=== PATIENT | female | born 1955 | race African-American/Black ===

== ENCOUNTER 2019-09-03 07:50 | Inpatient (IN) | payer BC, MEDICARE ==
[~2019-09-03] VITALS: Ht 165.1 cm; Wt 101.2 kg
--- NOTE | 2019-09-03 07:50 | NUR ---
ED Nurse Note: Patient came into the ER from home with RA 34 with a c/o chest pain on the left side since this morning. Patient states she is no longer having chest pain but shortness of breath. patient is aaox4, on room air and vital signs are stable. Patient placed in gown and on waste/materials exchange specialist. EKG done bedside and blood lab specimens sent to the lab.
--- NOTE | 2019-09-03 08:08 | Emergency Room Report ---
History of Present Illness General Chief Complaint: Chest Pain Source: Patient, EMS Present Illness HPI Patient presents to the emergency department today complaining of cute onset of left-sided chest pain and shortness of breath associated dizziness. She states that she began to feel dizzy earlier this morning felt like she was going to faint. She did not actually have a syncopal event. Subsequently developed an onset of chest discomfort associate shortness of breath. Because of severity of symptoms she called EMS. EMS gave her nitro and aspirin and symptoms did improve. She still slightly short of breath and complaining of mild lightheadedness. She denies any weakness in any part of body. Denies any leg pain or leg swelling. Denies any nausea vomiting diarrhea chills. Symptoms noted to be highly severe. No other modifying factors. No other associated signs and symptoms. No other complaints were noted. Allergies: Coded Allergies: No Known Allergies (Unverified , 09/03/19) Patient History Past Medical History: DM, HTN Past Surgical History: none Pertinent Family History: none Social History: Denies: smoking, alcohol use, drug use Reviewed Nursing Documentation: PMH: Agreed; PSxH: Agreed Nursing Documentation-PMH Past Medical History: No History, Except For Hx Hypertension: Yes Review of Systems All Other Systems: negative except mentioned in HPI Physical Exam Vital Signs Date Time Temp Pulse Resp B/P (MAP) Pulse Ox O2 Delivery O2 Flow Rate FiO2 09/03/19 07:45 98.4 80 20 134/74 (94) 98 Room Air Sp02 EP Interpretation: reviewed, normal General Appearance: normal inspection, well appearing, no apparent distress, alert Head: atraumatic Eyes: bilateral eye normal inspection ENT: normal ENT inspection, hearing grossly normal, normal voice Neck: normal inspection, full range of motion, supple, no bony tend Respiratory: normal inspection, lungs clear, normal breath sounds, no respiratory distress, no retraction, no wheezing Cardiovascular #1: regular rate, rhythm, no edema Gastrointestinal: normal inspection, normal bowel sounds, non tender, soft, no guarding, no hernia Genitourinary: no CVA tenderness Musculoskeletal: normal inspection, back normal, normal range of motion Neurologic: alert, responsive, speech normal, normal inspection Psychiatric: normal inspection, judgement/insight normal, mood/affect normal Skin: no rash Medical Decision Making Diagnostic Impression: Primary Impression: ACS (acute coronary syndrome) ER Course Patient presented to the emergency department today complaining of chest pain. Differential diagnoses include acute coronary syndrome, pulmonary embolism, pneumothorax, chest wall pain, pleurisy, pericarditis, acute anxiety reaction just to name a few. Given the severity of the patient's presentation I felt this is a highly complex patient. This patient required extensive workup. CBC , chemistry, EKG, chest x-ray, cardiac enzymes, liver profile were all obtained. 12-lead EKG performed for nontraumatic chest pain. RS documentation: EKG was performed. Please refer to below for interpretation. Laboratory work-up shows elevated troponin. Patient's BUN and creatinine were also elevated. Given patient's risk factors felt the patient required admission. Case was discussed with admitting physician Dr. Froilan Christine. Labs Test 09/03/19 08:00 White Blood Count 4.4 K/UL (4.8-10.8) Red Blood Count 4.94 M/UL (4.20-5.40) Hemoglobin 13.7 G/DL (12.0-16.0) Hematocrit 43.0 % (37.0-47.0) Mean Corpuscular Volume 87 FL (80-99) Mean Corpuscular Hemoglobin 27.7 PG (27.0-31.0) Mean Corpuscular Hemoglobin Concent 31.8 G/DL (32.0-36.0) Red Cell Distribution Width 12.0 % (11.6-14.8) Platelet Count 137 K/UL (150-450) Mean Platelet Volume 8.2 FL (6.5-10.1) Neutrophils (%) (Auto) 40.5 % (45.0-75.0) Lymphocytes (%) (Auto) 38.9 % (20.0-45.0) Monocytes (%) (Auto) 17.1 % (1.0-10.0) Eosinophils (%) (Auto) 2.3 % (0.0-3.0) Basophils (%) (Auto) 1.2 % (0.0-2.0) Sodium Level 137 MMOL/L (136-145) Potassium Level 3.4 MMOL/L (3.5-5.1) Chloride Level 102 MMOL/L (98-107) Carbon Dioxide Level 28 MMOL/L (21-32) Anion Gap 7 mmol/L (5-15) Blood Urea Nitrogen 18 mg/dL (7-18) Creatinine 1.4 MG/DL (0.55-1.30) Estimat Glomerular Filtration Rate 45.6 mL/min (>60) Glucose Level 159 MG/DL (74-106) Calcium Level 8.5 MG/DL (8.5-10.1) Total Bilirubin 0.4 MG/DL (0.2-1.0) Aspartate Amino Transf (AST/SGOT) 27 U/L (15-37) Alanine Aminotransferase (ALT/SGPT) 24 U/L (12-78) Alkaline Phosphatase 59 U/L (46-116) Troponin I 0.126 ng/mL (0.000-0.056) Total Protein 7.4 G/DL (6.4-8.2) Albumin 3.3 G/DL (3.4-5.0) Globulin 4.1 g/dL Albumin/Globulin Ratio 0.8 (1.0-2.7) Lipase 171 U/L (73-393) EKG Diagnostic Results Rate: normal Rhythm: NSR ST Segments: other - Nonspecific T wave flattening. Rhythm Strip Diag. Results EP Interpretation: yes Rate: 88 Rhythm: NSR, no PVC's, no ectopy Chest X-Ray Diagnostic Results Chest X-Ray Diagnostic Results : Chest X-Ray Ordered: Yes # of Views/Limited/Complete: 1 View Indication: Chest Pain EP Interpretation: Yes Interpretation: no consolidation, no effusion, no pneumothorax, no acute cardiopulmonary disease Impression: No acute disease Electronically Signed by: Electronically signed by Reese Muhammad MD Last Vital Signs Date Time Temp Pulse Resp B/P (MAP) Pulse Ox O2 Delivery O2 Flow Rate FiO2 09/03/19 07:45 98.4 80 20 134/74 (94) 98 Room Air Status: improved Disposition: ADMITTED INPATIENT Condition: Serious Reese Muhammad MD Sep 03, 2019 08:08
[2019-09-03 08:12] VITALS: BP 118/64
[2019-09-03 08:15] LABS: BASOPHILS % (AUTO) 1.2 % (0.0-2.0); EOSINOPHILS % (AUTO) 2.3 % (0.0-3.0); HEMOGLOBIN 13.7 G/DL (12.0-16.0); LYMPHOCYTES % (AUTO) 38.9 % (20.0-45.0); MEAN CORPUSCULAR VOLUME 87 FL (80-99); MONOCYTES % (AUTO) 17.1 % (1.0-10.0); NEUTROPHILS % (AUTO) 40.5 % (45.0-75.0); PLATELET COUNT 137 K/UL (150-450); RED BLOOD COUNT 4.94 M/UL (4.20-5.40); WHITE BLOOD COUNT 4.4 K/UL (4.8-10.8)
--- NOTE | 2019-09-03 08:34 | NUR ---
ED Nurse Note: xray is bedside.
[2019-09-03 08:38] VITALS: BP 117/61
--- NOTE | 2019-09-03 08:38 | NUR ---
ED Nurse Note: Patient is c/o chest tightness and pressure on the left side not radiating. Notified ERMD of chest pain.
[2019-09-03] MEDS ORDERED: Nitroglycerin 2% oint pkt TOPIC ONE (08:45)
[2019-09-03 08:59] LABS: ANION GAP 7 mmol/L (5-15); BLOOD UREA NITROGEN 18 mg/dL (7-18); CALCIUM 8.5 MG/DL (8.5-10.1); CARBON DIOXIDE 28 MMOL/L (21-32); CHLORIDE 102 MMOL/L (98-107); CREATININE 1.4 MG/DL (0.55-1.30); POTASSIUM 3.4 MMOL/L (3.5-5.1); SODIUM 137 MMOL/L (136-145)
[2019-09-03 09:03] LABS: ALANINE AMINOTRANSFERASE 24 U/L (12-78); ALBUMIN 3.3 G/DL (3.4-5.0); ALBUMIN/GLOBULIN RATIO 0.8 (1.0-2.7); ALKALINE PHOSPHATASE 59 U/L (46-116); ASPARTATE AMINO TRANSFERASE 27 U/L (15-37); BILIRUBIN,TOTAL 0.4 MG/DL (0.2-1.0)
[2019-09-03 09:30] VITALS: BP 121/64
--- NOTE | 2019-09-03 09:30 | NUR ---
ED Nurse Note: Reassessed patient chest pain and patient states she is chest pain is subsided at this moment
--- NOTE | 2019-09-03 10:34 | NUR ---
ED Nurse Note: Called SDU and spoke with CHRISTIANO Ly and endorsed continuity of care.
--- NOTE | 2019-09-03 10:40 | NUR ---
ED Nurse Note: Patient was sent up to SDU with manufacturing technology analyst per ACLS protocol.
--- NOTE | 2019-09-03 10:50 | NUR ---
NURSE NOTES: Admitted patient from ED. Placed comfortably in cardiac monitored bed. Call light within reach. Denies chest pain at this time. Assisted patient to ambulate to the bathroom. Belonging list reviewed with ED Nurse. Will admit to SDU standard level of care.
[2019-09-03 12:00] VITALS: BP 114/68
[2019-09-03] MEDS ORDERED: Morphine Sulfate 2mg/ml Inj(IV/IM USE ONLY) IVP PRN (12:00)
--- NOTE | 2019-09-03 13:23 | Diagnostic Imaging Report ---
Indication: Chest pain Technique: XRAY Chest 1v Comparison: None Findings: Heart appears mildly enlarged. Mediastinal contours are sharp. There is prominence of the bilateral perihilar regions favored to be related to ectatic pulmonary vasculature. Possibility of hilar lymphadenopathy or mass however cannot be excluded. There is no focal airspace consolidation no pleural effusion, pneumothorax or radiographic evidence of pulmonary edema. There are degenerative changes of the spine. No acute osseous abnormality. Impression: Bilateral perihilar prominence which may be related to ectatic vasculature. Possibility of lymphadenopathy or mass in this regions cannot be excluded, especially given no prior film available for comparison. Recommend follow-up CT of the chest with contrast.
--- NOTE | 2019-09-03 15:00 | NUR ---
NURSE NOTES: Dr. Escalera at bedside.
[2019-09-03] MEDS ORDERED: HYZAAR 100-12.1 EACH ORAL (15:57)
[2019-09-03 16:00] VITALS: BP 94/54
[2019-09-03] MEDS ORDERED: D5 1/2NS 1,000 ML IV SCH (16:00)
--- NOTE | 2019-09-03 17:16 | NUR ---
NURSE NOTES: Dr. Turk and Dr. Escalera made aware that patient is having chest pain. Patient refused morphine. EKG done.
[2019-09-03] MEDS ORDERED: Lexiscan 0.4mg/5ml syringe IV PRN (17:28)
[2019-09-03] MEDS ORDERED: SIMVASTATIN40 MG ORAL (17:52)
[2019-09-03] MEDS ORDERED: TAMOXIFEN CITRA10 MG ORAL (17:52)
--- NOTE | 2019-09-03 19:40 | NUR ---
HAND-OFF: Report given to Ramin Quijano RN.
--- NOTE | 2019-09-03 19:50 | NUR ---
NURSE NOTES: Received report from CHRISTIANO Jacobs. Pt is currently resting in bed and is alert and oriented x3-4. Pt remains SR on tele monitor and is on RA. Pt currently denies SOB, CP and pain. L AC 20g IV cathter noted which remains asymptomatic, patent and intact. Bed is in lowest setting, safety wheels engaged, bed alarm activated, call light within reach and side rails upx2. Will continue to monitor. Will continue plan of care.
[2019-09-03 20:00] VITALS: BP 103/66
--- NOTE | 2019-09-03 20:42 | NUR ---
NURSE NOTES: Troponin results posted to [facility]. Troponin remains elevated at 0.529. Pt currently denies chest pain. 12 lead EKG performed at bedside without incident. EKG results: Normal Sinus Rhythm with nonspecific T wave abnormality. Timber Watchman to come evaluate pt this evening.
[2019-09-03] MEDS ORDERED: Atorvastatin 20mg tab ORAL SCH (21:00)
--- NOTE | 2019-09-03 21:00 | NUR ---
NURSE NOTES: Pt provided with materials for bed bath, oral care and fresh blankets at request. Pt able to perform ADL's mostly independent with minimal assistance. Pt continues resting in bed, bed is in lowest position with safety wheels engaged, bed alarm activated, call light within reach and side rails up x2. Will continue to monitor.
--- NOTE | 2019-09-03 22:00 | History and Physical Report ---
DATE OF ADMISSION: 09/03/2019 SALVAGE WORKER: Refugio Turk M.D. CHIEF COMPLAINT: Chest pain, ACS, and hypertension. BRIEF HISTORY: This is a 64-year-old female, who lives at home, presented with substernal chest pain, dull, no radiation, slight dizziness, slight short of breath, and was lightheaded. The patient came to [facility], diagnosed with the above, admitted to [facility] for further care. Currently, calm, in bed. No complaint. REVIEW OF SYSTEMS: No chest pain. No shortness of breath. N nausea, vomiting, or diarrhea. PAST MEDICAL HISTORY: Hypertension. PAST SURGICAL HISTORY: Breast reduction, gastric bypass, and appendectomy. MEDICATIONS: Include morphine, nitroglycerin, and intravenous fluids. ALLERGIES: Denies. SOCIAL HISTORY: No smoking. No alcohol. No intravenous drug abuse. FAMILY HISTORY: Noncontributory. PHYSICAL EXAMINATION: GENERAL: Calm in bed, oriented x3, in no acute distress. VITAL SIGNS: Temperature is 98 degrees, pulse 80, respirations 20, and blood pressure 114/68. CARDIOVASCULAR: No murmurs. LUNGS: Distant and clear. ABDOMEN: Bowel sounds positive. Nontender. Nondistended. EXTREMITIES: No cyanosis or edema. NEUROLOGIC: The patient moves all extremities, slightly weak. LABORATORY AND DIAGNOSTIC DATA: Labs at this time show white count 4.4 and platelets 137,000. Otherwise CBC is normal. Potassium 3.4, creatinine 1.4, and glucose 159. Troponin 0.126, next one is 0.383. Albumin 3.3. ASSESSMENT: 1. Chest pain. 2. ACS. 3. Elevated troponin. 4. Malnutrition. 5. Hypertension. PLAN: 1. Blood pressure control. 2. Pain control. 3. Dietary followup. 4. Troponin q.8 h. x3. 5. EKG in the a.m. 6. Dr. Turk to followup. 7. Resume home medications. 8. PT and dietary evaluation. 9. CBC and BMP in the morning. Froilan Escalera D.O. DR: MINOR JOB#: [id number] CC:
[2019-09-04] VITALS: BP 113/70
[2019-09-04 04:00] VITALS: BP 100/60
[2019-09-04 05:13] LABS: BASOPHILS % (AUTO) 1.4 % (0.0-2.0); EOSINOPHILS % (AUTO) 2.8 % (0.0-3.0); HEMATOCRIT 43.6 % (37.0-47.0); HEMOGLOBIN 13.8 G/DL (12.0-16.0); LYMPHOCYTES % (AUTO) 45.2 % (20.0-45.0); MEAN CORPUSCULAR VOLUME 87 FL (80-99); MONOCYTES % (AUTO) 11.8 % (1.0-10.0); NEUTROPHILS % (AUTO) 38.7 % (45.0-75.0); PLATELET COUNT 161 K/UL (150-450); RED BLOOD COUNT 5.01 M/UL (4.20-5.40); RED CELL DISTRIBUTION WIDTH 12.1 % (11.6-14.8); WHITE BLOOD COUNT 6.2 K/UL (4.8-10.8)
[2019-09-04 06:11] LABS: ALANINE AMINOTRANSFERASE 21 U/L (12-78); ALBUMIN 3.3 G/DL (3.4-5.0); ALBUMIN/GLOBULIN RATIO 0.8 (1.0-2.7); ALKALINE PHOSPHATASE 55 U/L (46-116); ANION GAP 10 mmol/L (5-15); ASPARTATE AMINO TRANSFERASE 24 U/L (15-37); BILIRUBIN,TOTAL 0.4 MG/DL (0.2-1.0); BLOOD UREA NITROGEN 16 mg/dL (7-18); CALCIUM 8.8 MG/DL (8.5-10.1); CARBON DIOXIDE 27 MMOL/L (21-32); CHLORIDE 103 MMOL/L (98-107); CREATININE 1.2 MG/DL (0.55-1.30); POTASSIUM 3.6 MMOL/L (3.5-5.1); SODIUM 140 MMOL/L (136-145)
--- NOTE | 2019-09-04 06:27 | NUR ---
NURSE NOTES: [facility] called to report Troponin 0.401. Relayed message to CHRISTIANO Faustin.
--- NOTE | 2019-09-04 06:28 | NUR ---
NURSE NOTES: Conor from Lab called Troponin resulted 0.401. Will call to notify .
--- NOTE | 2019-09-04 06:32 | NUR ---
NURSE NOTES: Called and left message for Dr Turk regarding troponin results, 12 lead EKG shows SR with occasional PVC, no complaints of CP at this time
--- NOTE | 2019-09-04 07:10 | NUR ---
NURSE NOTES: Report received from CHRISTIANO Faustin
--- NOTE | 2019-09-04 07:15 | NUR ---
NURSE NOTES: Report received from CHRISTIANO Faustin
--- NOTE | 2019-09-04 07:19 | NUR ---
HAND-OFF: Report given to CHRISTIANO Arana. Pt remains stable at this time.
[2019-09-04 08:00] VITALS: BP 103/55
--- NOTE | 2019-09-04 08:10 | NUR ---
NURSE NOTES: Pt received from Giacomo Woods.Patient alert and oriented x 4, admitted for chest pain.Denied of any discomfort at this time, able to make needs known at all the times.Scheduled for stress test, troponin 0.[address] Turk made aware.Npo at this time.LAC saline lock.Call light within easy reach. Bed in low position, pt ambulatory with assist.Able to self repositioned.Will continue close monitoring.
[2019-09-04] MEDS ORDERED: hydroCHLOROthiazide 12.5mg TAB ORAL SCH (09:00)
[2019-09-04] MEDS ORDERED: Losartan 50mg tab ORAL SCH (09:00)
[2019-09-04] MEDS ORDERED: Tamoxifen 10mg tab ORAL SCH (09:00)
--- NOTE | 2019-09-04 09:02 | NUR ---
NURSE NOTES: Patient was taken down for Stress test
--- NOTE | 2019-09-04 09:44 | Cardiology Progress Note ---
Assessment/Plan Assessment/Plan The patient is seen and examined, full consult note is dictated. Objective Last 24 Hour Vital Signs Date Time Temp Pulse Resp B/P (MAP) Pulse Ox O2 Delivery O2 Flow Rate FiO2 09/04/19 08:21 103/55 09/04/19 08:00 Room Air 09/04/19 08:00 98.1 86 18 103/55 (71) 93 09/04/19 04:00 99.2 103 20 100/60 (73) 94 09/04/19 04:00 Room Air 09/04/19 03:21 95 09/04/19 00:00 Room Air 09/04/19 00:00 99.0 93 20 113/70 (84) 91 09/03/19 23:24 92 09/03/19 20:00 Room Air 09/03/19 20:00 98.6 100 22 103/66 (78) 94 09/03/19 19:13 104 09/03/19 16:00 99.4 103 20 94/54 (67) 94 09/03/19 15:08 100 09/03/19 12:00 98.0 80 20 114/68 (83) 94 09/03/19 11:44 86 09/03/19 11:30 Room Air 09/03/19 10:40 97.8 85 18 121/64 94 Room Air Intake and Output 09/03/19 09/04/19 19:00 07:00 Intake Total 510 ml 250 ml Balance 510 ml 250 ml Intake Oral 510 ml 250 ml # Voids 2 3 Laboratory Tests Test 09/03/19 12:15 09/03/19 19:45 09/04/19 04:00 Troponin I 0.383 ng/mL (0.000-0.056) 0.529 ng/mL (0.000-0.056) 0.401 ng/mL (0.000-0.056) White Blood Count 6.2 K/UL (4.8-10.8) Red Blood Count 5.01 M/UL (4.20-5.40) Hemoglobin 13.8 G/DL (12.0-16.0) Hematocrit 43.6 % (37.0-47.0) Mean Corpuscular Volume 87 FL (80-99) Mean Corpuscular Hemoglobin 27.6 PG (27.0-31.0) Mean Corpuscular Hemoglobin Concent 31.7 G/DL (32.0-36.0) L Red Cell Distribution Width 12.1 % (11.6-14.8) Platelet Count 161 K/UL (150-450) Mean Platelet Volume 8.2 FL (6.5-10.1) Neutrophils (%) (Auto) 38.7 % (45.0-75.0) L Lymphocytes (%) (Auto) 45.2 % (20.0-45.0) H Monocytes (%) (Auto) 11.8 % (1.0-10.0) H Eosinophils (%) (Auto) 2.8 % (0.0-3.0) Basophils (%) (Auto) 1.4 % (0.0-2.0) Sodium Level 140 MMOL/L (136-145) Potassium Level 3.6 MMOL/L (3.5-5.1) Chloride Level 103 MMOL/L (98-107) Carbon Dioxide Level 27 MMOL/L (21-32) Anion Gap 10 mmol/L (5-15) Blood Urea Nitrogen 16 mg/dL (7-18) Creatinine 1.2 MG/DL (0.55-1.30) Estimat Glomerular Filtration Rate 54.5 mL/min (>60) Glucose Level 133 MG/DL (74-106) H Calcium Level 8.8 MG/DL (8.5-10.1) Total Bilirubin 0.4 MG/DL (0.2-1.0) Aspartate Amino Transf (AST/SGOT) 24 U/L (15-37) Alanine Aminotransferase (ALT/SGPT) 21 U/L (12-78) Alkaline Phosphatase 55 U/L (46-116) Total Protein 7.4 G/DL (6.4-8.2) Albumin 3.3 G/DL (3.4-5.0) L Globulin 4.1 g/dL Albumin/Globulin Ratio 0.8 (1.0-2.7) L Refugio Turk MD Sep 04, 2019 09:44
--- NOTE | 2019-09-04 09:48 | NUR ---
NURSE NOTES: Returned from first step stress test.Seen by Dr Herrera will follow up with new order Addendum: 09/04/19 at 1211 by Yasmeen Tuttle RN per Dr Turk , transfer to [facility]. Pt to be transfer in 221 bed 2, awaiting for room
[2019-09-04] MEDS ORDERED: Enoxaparin 100mg Inj SUBQ SCH ×2 (10:00→11:00)
--- NOTE | 2019-09-04 10:15 | NUR ---
NURSE NOTES: Per Dr transfer pt to [facility] or [place] as first bed available.Mihaela case management and family made aware.
[2019-09-04] MEDS ORDERED: Metoprolol Tartrate 50mg tab ORAL SCH (10:30)
[2019-09-04 12:00] VITALS: BP 112/92
--- NOTE | 2019-09-04 12:11 | NUR ---
NURSE NOTES: Patient awake with family visitor at bedside.No acute distress,denied of any chest pain. Call light within easy reach.Kept clean and comfortable.Will continue close monitoring Addendum: 09/04/19 at 1615 by Yasmeen Tuttle RN Stress test cancelled by Dr Lewis.Dr Turk , patient and family present and update given
--- NOTE | 2019-09-04 14:20 | NUR ---
NURSE NOTES: Patient awake and denied of any pain and discomfort.Patient and family preference is to be transfer at [facility].Dr Turk also aware.Will continue close monitoring
--- NOTE | 2019-09-04 14:42 | Diagnostic Imaging Report ---
Indication: Chest pain Technique: IV administration 10.4 mCi 99m technetium Myoview. Resting SPECT images were obtained. No stress images were obtained, stress test canceled by referring physician due to elevated troponins Comparison: none Findings: No resting perfusion defects are demonstrated. Normal cardiac chamber size Impression: Negative resting study, therefore negative for evidence of infarct. Unable to assess for ischemia in the absence of poststress imaging
--- NOTE | 2019-09-04 15:05 | General Progress Note ---
Assessment/Plan Problem List: (1) HTN (hypertension) ICD Codes: I10 - Essential (primary) hypertension SNOMED: 28813774 (2) ACS (acute coronary syndrome) ICD Codes: I24.9 - Acute ischemic heart disease, unspecified SNOMED: 902974364 Status: unchanged Assessment/Plan: pain control cardio f/u transfer for cath Subjective Constitutional: Reports: weakness Allergies: Coded Allergies: No Known Allergies (Unverified , 09/03/19) All Systems: reviewed and negative except above Subjective calm in bed Objective Last 24 Hour Vital Signs Date Time Temp Pulse Resp B/P (MAP) Pulse Ox O2 Delivery O2 Flow Rate FiO2 09/04/19 10:49 67 127/69 09/04/19 08:51 98.1 09/04/19 08:21 103/55 09/04/19 08:00 84 09/04/19 08:00 Room Air 09/04/19 08:00 98.1 86 18 103/55 (71) 93 09/04/19 04:00 99.2 103 20 100/60 (73) 94 09/04/19 04:00 Room Air 09/04/19 03:21 95 09/04/19 00:00 Room Air 09/04/19 00:00 99.0 93 20 113/70 (84) 91 09/03/19 23:24 92 09/03/19 20:00 Room Air 09/03/19 20:00 98.6 100 22 103/66 (78) 94 09/03/19 19:13 104 09/03/19 16:00 99.4 103 20 94/54 (67) 94 09/03/19 15:08 100 Intake and Output 09/03/19 09/04/19 19:00 07:00 Intake Total 510 ml 250 ml Balance 510 ml 250 ml Intake Oral 510 ml 250 ml # Voids 2 3 Laboratory Tests 09/03/19 19:45: Troponin I 0.529H 09/04/19 04:00: Troponin I 0.401H, White Blood Count 6.2, Red Blood Count 5.01, Hemoglobin 13.8 , Hematocrit 43.6, Mean Corpuscular Volume 87, Mean Corpuscular Hemoglobin 27.6 , Mean Corpuscular Hemoglobin Concent 31.7L, Red Cell Distribution Width 12.1, Platelet Count 161, Mean Platelet Volume 8.2, Neutrophils (%) (Auto) 38.7L, Lymphocytes (%) (Auto) 45.2H, Monocytes (%) (Auto) 11.8H, Eosinophils (%) (Auto ) 2.8, Basophils (%) (Auto) 1.4, Sodium Level 140, Potassium Level 3.6, Chloride Level 103, Carbon Dioxide Level 27, Anion Gap 10, Blood Urea Nitrogen 16, Creatinine 1.2, Estimat Glomerular Filtration Rate 54.5, Glucose Level 133H , Calcium Level 8.8, Total Bilirubin 0.4, Aspartate Amino Transf (AST/SGOT) 24, Alanine Aminotransferase (ALT/SGPT) 21, Alkaline Phosphatase 55, Pro-B-Type Natriuretic Peptide 1872H, Total Protein 7.4, Albumin 3.3L, Globulin 4.1, Albumin/Globulin Ratio 0.8L Height (Feet): 5 Height (Inches): 5.00 Weight (Pounds): 223 General Appearance: lethargic EENT: normal ENT inspection Neck: normal alignment Cardiovascular: normal peripheral pulses, normal rate, regular rhythm Respiratory/Chest: chest wall non-tender, lungs clear, normal breath sounds Abdomen: normal bowel sounds, non tender, soft Extremities: normal inspection Edema: no edema noted Arm (L), no edema noted Arm (R), no edema noted Leg (L), no edema noted Leg (R), no edema noted Pedal (L), no edema noted Pedal (R), no edema noted Generalized Neurologic: motor weakness Skin: normal pigmentation, warm/dry Froilan Escalera DO Sep 04, 2019 15:05
--- NOTE | 2019-09-04 15:20 | NUR ---
NURSE NOTES: Received call from casework supervisor Mihaela to follow up with Dr Herrera if he will schedule any surgery.Made her aware question was already answer by Dr Turk stating he is not preparing to do any surgery tonight. Left message to Dr Turk again to confirm since the first room availability was given at [facility] .
--- NOTE | 2019-09-04 15:23 | NUR ---
CASE MANAGEMENT: INITIAL REVIEW 64YR OLD FEMALE BIBA FROM HOME CC: CHEST PAIN . SOB . DIZZY SI: ACS 98.4 80 20 134/74 98% ON RA TROP+ 0.383 ->0.529 WBC 4.4 PLT 137 IS:NITRO-BID TP X1 K-DUR PO X1 CXR -Bilateral perihilar prominence \: STEP DOWN UNIT DCP: RETURN HOME WHEN MEDICALLY STABLE PLAN: TRANSFER TO [facility]
[2019-09-04 16:00] VITALS: BP 110/47
--- NOTE | 2019-09-04 16:13 | NUR ---
NURSE NOTES: Patient awake in bed talking on the phone.Denied of any pain and discomfort.To be transfer to [facility] floor.Clean dry and comfortable.
[2019-09-04] MEDS ORDERED: Lexiscan 0.4mg/5ml syringe IV ONE (16:30)
--- NOTE | 2019-09-04 16:40 | NUR ---
NURSE NOTES: Patient transferred to telemetry Addendum: 09/04/19 at 1728 by Yasmeen Tuttle RN Report given to Giacomo Tolbert
[2019-09-04] MEDS ORDERED: Lexiscan 0.4mg/5ml syringe IV PRN (17:15)
[2019-09-04] MEDS ORDERED: Morphine Sulfate 2mg/ml Inj(IV/IM USE ONLY) IVP PRN (18:00)
--- NOTE | 2019-09-04 19:35 | NUR ---
NURSE NOTES: Received pt and report from CHRISTIANO Tubbs. Observed pt resting in bed with both eyes open and watching television. Pt is A/Ox4. monitor technician is in placed, IV site intact, asymptomatic, and patent. Bed is in the lowest position, locked, and alarmed. Call light and bedside table is within reach. No signs/symptoms of acute distress noted at this time. Will continue plan of care.
[2019-09-04 20:00] VITALS: BP 130/79
[2019-09-04] MEDS: Metoprolol Tartrate 50mg tab ORAL SCH (20:59)
[2019-09-04] MEDS: Enoxaparin 100mg Inj SUBQ SCH (21:00)
[2019-09-04] MEDS ORDERED: Atorvastatin 20mg tab ORAL SCH (21:00)
[2019-09-05] VITALS: BP 96/60
[2019-09-05 04:00] VITALS: BP 110/56
--- NOTE | 2019-09-05 07:27 | NUR ---
NURSE NOTES: Received pt awake and alert from MY RN. pt has intact iv access LAC 20G SL. Pt is no continues fluid dynamicist. No complain of pain at this moment, all needs attended, bed is locked and is in the lowest position, call light within easy reach. will continue to monitor.
--- NOTE | 2019-09-05 07:43 | NUR ---
HAND-OFF: Report given to CHRISTIANO Schreiber. Plan of care endorsed.
[2019-09-05 08:00] VITALS: BP 161/81
[2019-09-05 08:00] LABS: EOSINOPHILS % (AUTO) 3.6 % (0.0-3.0); HEMOGLOBIN 13.5 G/DL (12.0-16.0); LYMPHOCYTES % (AUTO) 47.7 % (20.0-45.0); MEAN CORPUSCULAR VOLUME 87 FL (80-99); NEUTROPHILS % (AUTO) 36.7 % (45.0-75.0); PLATELET COUNT 143 K/UL (150-450); RED BLOOD COUNT 4.84 M/UL (4.20-5.40); RED CELL DISTRIBUTION WIDTH 11.7 % (11.6-14.8); WHITE BLOOD COUNT 5.9 K/UL (4.8-10.8)
[2019-09-05 08:19] LABS: ANION GAP 8 mmol/L (5-15); BLOOD UREA NITROGEN 16 mg/dL (7-18); CALCIUM 8.7 MG/DL (8.5-10.1); CARBON DIOXIDE 28 MMOL/L (21-32); CHLORIDE 104 MMOL/L (98-107); CREATININE 1.2 MG/DL (0.55-1.30); POTASSIUM 3.9 MMOL/L (3.5-5.1); SODIUM 139 MMOL/L (136-145)
--- NOTE | 2019-09-05 08:22 | NUR ---
Nursing Cost Clerk Note: Received call from Dr. Refugio Turk regarding transfer to [facility] for Cardiac Catheterization. Dr. Turk stated that this is causing a delay in care for a patient with an Acute MN and would like to escalate this issue so patient is transferred. Spoke to Mihaela Trujillo, [employer]oa Bean Cleaner, and she is contacting Transfer Facility now to facilitate transfer, and will call me back with outcome.
[2019-09-05] MEDS ORDERED: Aspirin EC 81mg tab ORAL SCH ×2 (09:00)
[2019-09-05] MEDS ORDERED: Tamoxifen 10mg tab ORAL SCH (09:00)
[2019-09-05] MEDS: Metoprolol Tartrate 50mg tab ORAL SCH (09:00)
[2019-09-05] MEDS: Enoxaparin 100mg Inj SUBQ SCH (09:00)
[2019-09-05] MEDS ORDERED: hydroCHLOROthiazide 12.5mg TAB ORAL SCH (09:00)
--- NOTE | 2019-09-05 09:15 | NUR ---
NURSE NOTES: Dr RANDALL is aware about all morning meds, V/S and lab results, ordered to hold all morning meds, noted and carried out. will continue to monitor.
--- NOTE | 2019-09-05 09:47 | NUR ---
TRANSFER PLANNED: PATIENT IS TRANSFER TO [facility] T: [phone] SPAR CAP BEVELER T: [phone] FOR NURSE TO NURSE REPORT ROOM# 243 B AMBULANCE SAFETY GROOVING MACHINE OPERATOR TIME IS WITHIN THE HOUR CONFIRMED WITH ORA (SPAR CAP BEVELER) THAT PATIENT HAS BEEN ACCEPTED
--- NOTE | 2019-09-05 10:11 | NUR ---
NURSE NOTES: RN called [facility] and gave them report, but they refused to accept pt because of HTN, they are aware Dr RANDALL hold morning meds but still insist to stable pt, Dr RANDALL notified and ordered amlodipine and metoprolol once now, noted and carried out. will continue to monitor.
[2019-09-05] MEDS ORDERED: Metoprolol Tartrate 50mg tab ORAL SCH (10:15)
[2019-09-05 10:18] VITALS: BP 161/81
--- NOTE | 2019-09-05 10:45 | NUR ---
Nursing Process Stripper Note: Physician In Private Practice, Mihaela, able to obtain bed for transfer to [place] for heart catheterization and ambulance was set up, but when primary RN Candie attempted to call report to [place], they refused transfer secondary to elevated blood pressure (161/81). Dr. Turk was notified by primary RN Candie and medication orders received for hypertension
--- NOTE | 2019-09-05 11:08 | NUR ---
Nursing Roustabout Crew Note: Update received from primary RN Candie. Report has now been called to [facility] and ambulance in route
--- NOTE | 2019-09-05 11:41 | NUR ---
NURSE NOTES: pt is alert and stable, V/S stable, pt has LAC 20G SL intact iv access. report given to [facility] CHRISTIANO JIMÉNEZ. a COPY OF ALL HOSPITAL MEDS AND imagines and others are with pt. all belongings are with pt and she signed belongings list. pt left hospital with [facility] ambulance personnel
--- NOTE | 2019-09-06 16:58 | Discharge Summary ---
Discharge Summary Discharge Summary _ DATE OF ADMISSION: 09/03/2019 DATE OF DISCHARGE: 09/05/2019 DISCHARGED BY: Dr. Froilan Escalera CONSULTANTS: Dr. Refugio Turk BRIEF HOSPITAL COURSE: Patient is a 64-year-old female, who lives at home, presented to ED due to substernal chest pain, dull, no radiation, with slight dizziness, lightheadedness and shortness of breath. She has medical history of hypertension. Upon evaluation at ED, vital signs were stable. Blood work showed troponin elevated to 0.126. Creatinine was 1.4. There was no leukocytosis, hemoglobin and hematocrit were stable. Platelet count was 137. He was admitted for evaluation of chest pain and elevated troponin. Cardiac enzymes were monitored. She was given Norvasc, metoprolol, hydrochlorothiazide and losartan for blood pressure control. She was given antiplatelet therapy. She was continued on Lipitor. Cardiac enzymes elevated. Patient would need cardiac catheterization. She was eventually transferred to [facility]. FINAL DIAGNOSES: Hypertension Acute coronary syndrome DISPOSITION: Transfer to acute care hospital. I have been assigned to complete a discharge summary on this account, I was not involved with the patient's management.--MARY ANN Torres Jacqueline Robles NP Sep 06, 2019 16:58
== END 2019-09-05 11:40 | disposition critical access hospital, planned readmission (94) | DRG 311 ==
LOC: EDBD 07:50 → EMR 08:33 → 2W 08:40 → EDBEDREQ 09:22 → EDBEDREQSVC 09:22 → EDBEDREQ 10:09 → 2E 09-04 17:09
DX: I24.9 Acute ischemic heart disease, unspecified (principal); E46 Unspecified protein-calorie malnutrition; I10 Essential (primary) hypertension; Z68.37 Body mass index [BMI] 37.0-37.9, adult; I25.10 Atherosclerotic heart disease of native coronary artery without angina pectoris; Z98.84 Bariatric surgery status
CPT/HCPCS: 36415; 71045; 78451; 80048; 80053; 83690; 83880; 84484; 85025; 93005; 93306; 99285; J2785; J8499